=== PATIENT | male | born 1990 | race American Indian/Alaskan Native ===

== ENCOUNTER 2019-11-23 10:02 | Emergency (ER) | payer OTHER ==
[2019-11-23 10:39] VITALS: BP 160/84
[2019-11-23] MEDS ORDERED: AMOXICILLIN 500 MG CAP PO ONE (14:15)
[2019-11-23] MEDS ORDERED: IBUPROFEN 800 MG TAB PO ONE (14:15)
[2019-11-23] MEDS ORDERED: NEOMY 3.5 MG/BACIT 400 UNITS/POLY B 5000 UNITS/GM OINT PACKET TP ONE (14:15)
--- NOTE | 2019-11-23 14:16 | Emergency Department Report ---
Abscess Boil HPI - HPI Chief Complaint: Extremity Injury, Upper Stated Complaint: PINKY INJURY Time Seen by Provider: 11/23/19 14:06 Duration: 4 Days Location: Upper Extremity Severity: Mild History: Yes Pain, No Fever, No Purulent Drainage, No Numbness, No Foreign Body, No Previous History, No Insect Bite HPI: 29 YO COMES TO ER WITH FINGER PAIN. HE HAS "BLISTER" FROM BITING HIS NAILS. NO FEVER. NON ILL NON TOXIC Home Medications: Previous Rx's Medication Instructions Recorded Last Taken Type Amoxicillin [Trimox CAP] 500 mg PO BID #20 capsule 11/23/19 Unknown Rx Allergies/Adverse Reactions: Allergies Allergy/AdvReac Type Severity Reaction Status Date / Time No Known Allergies Allergy Unverified 11/23/19 10:36 ED Review of Systems ROS: Stated complaint: PINKY INJURY Other details as noted in HPI Comment: All other systems reviewed and negative ED Past Medical Hx - Past Medical History Previous Medical History?: No - Surgical History Past Surgical History?: No - Family History Family history: no significant - Social History Smoking Status: Never Smoker Substance Use Type: None - Medications Home Medications: Home Medications Medication Instructions Recorded Confirmed Last Taken Type Amoxicillin [Trimox CAP] 500 mg PO BID #20 capsule 11/23/19 Unknown Rx ED Abscess Boil Physical Exam - Exam General: Vital signs noted. No distress. Alert and acting appropriately. Size: 1 cm Exam: Yes Tenderness, Yes Fluctuance, Yes Normal Neurologic Exam, Yes Normal Circulation, No Surrounding Cellulites/Erythema, No Lymphangitis, No Crepitation, No Heart Murmur I & D Note - I & D Note I & D Note: I/D OF FINGER. NO ANESTHESIA. NO 18G NEEDLE. TOLERATED WELL. CLEANED. DRESSING APPLIED ED Course Vital Signs 11/23/19 10:34 Temperature 98.7 F Pulse Rate 98 H Respiratory 18 Rate Blood Pressure 160/84 O2 Sat by Pulse 98 Oximetry Critical care attestation.: If time is entered above; I have spent that time in minutes in the direct care of this critically ill patient, excluding procedure time. ED Medical Decision Making - Medical Decision Making SIMPLE PARONYCHIA I/D NEUROVASC INTACT WOUND CARE PROVIDED DC HOME WITH RX AND PCP FOLLOW UP Vital Signs 11/23/19 10:34 Temperature 98.7 F Pulse Rate 98 H Respiratory 18 Rate Blood Pressure 160/84 O2 Sat by Pulse 98 Oximetry ED Disposition Clinical Impression: Paronychia Disposition: DC-01 TO HOME OR SELFCARE Is pt being admited?: No Does the pt Need Aspirin: No Condition: Stable Instructions: Paronychia (ED) Additional Instructions: SOAK IN WARM WATER SEVERAL TIMES PER DAY MED ORDERED REFERRAL TO PCP BELOW STOP BITING NAILS MOTRIN OR TYLENOL FOR PAIN Prescriptions: Amoxicillin [Trimox CAP] 500 mg PO BID #20 capsule Referrals: ZACH SILVA MD [Staff Physician] - 3-5 Days Time of Disposition: 14:14
== END 2019-11-23 14:34 | disposition home or self-care (01) ==
LOC: ED 10:02
DX: L03.012 Cellulitis of left finger (principal); Z79.899 Other long term (current) drug therapy
CPT/HCPCS: A6250